=== PATIENT | female | born 1975 | race Caucasian/White ===

== ENCOUNTER 2020-03-14 08:01 | Outpatient (CLI) | payer OTHER, SELFPAY ==
--- NOTE | ~2020-03-14 | US_ITS ---
EXAMINATION: US soft tissue UE LT DATE: 03/14/2020 08:40 INDICATION: Left forearm swelling TECHNIQUE: Multiple grayscale and Doppler ultrasound images of the region of concern at the posterior left forearm were obtained. COMPARISON: None FINDINGS/IMPRESSION: Normal appearance to the subcutaneous fat and underlying musculature at the region of concern. No abn ormal masses or fluid collections identified. Reviewed, dictated and finalized at location B.
--- NOTE | ~2020-03-14 | US_ITS ---
EXAMINATION: US right upper quadrant DATE: 03/14/2020 08:39 INDICATION: Abnormal liver function tests. TECHNIQUE: Multiple grayscale and Doppler ultrasound images of the abdomen were obtained. COMPARISON: Ultrasound 03/09/2014 FINDINGS: The visualized portions of the head, body, and tail of the pancreas are normal. There is di ffuse hepatic steatosis. There is a 2.7 cm hypoechoic mass at the margin of left hepatic lobe. There is normal flow in main portal vein. The gallbladder is absent. The common duct is normal and measures 6 mm. IMPRESSION: 1. Diffuse hepatic steatosis. 2. 2.7 cm hypoechoic mass at the margin of left hepatic lobe which may be benign or less likely malig nant. Abdomen MRI without and with contrast is recommended. Reviewed, dictated and finalized at location A. IMPRESSION: 1. Diffuse hepatic steatosis. 2. 2.7 cm hypoechoic mass at the margin of left hepatic lobe which may be benig n or less likely malignant. Abdomen MRI without and with contrast is recommende dInes
== END 2020-03-14 08:02 | disposition home or self-care (01) ==
LOC: CHSIMG 08:05
PROVIDERS: PCP Internal Medicine; Visit Provider Internal Medicine
DX: R94.5 Abnormal results of liver function studies (principal); M79.89 Other specified soft tissue disorders; M67.40 Ganglion, unspecified site
CPT/HCPCS: 76705; 76882

== ENCOUNTER 2020-03-15 10:36 | Outpatient (CLI) | payer OTHER, SELFPAY ==
--- NOTE | ~2020-03-15 | MR_ITS ---
EXAMINATION: MR abdomen wo/w con DATE: 03/15/2020 11:55 INDICATION: Liver mass TECHNIQUE: Magnetic resonance imaging (MRI) of the abdomen was performed without and with 20 mL Multi xochitl intravenous contrast. Sequences included coronal T2-weighted SS-FSE, coronal and axial FS 2D-F IESTA, axial STIR FSE, axial T2-weighted SS-FSE, axial T2-weighted FS SS-FSE, axial diffusion-weighte d SE, axial dual-echo T1-weighted FSPGR, and axial and coronal T1-weighted LAVA. Postcontrast axial T 1-weighted LAVA images were obtained in a time course. Postcontrast coronal T1-weighted LAVA images w ere obtained. COMPARISON: 03/14/2020 FINDINGS: Heart size is normal. No pericardial or pleural effusion. Diffuse hepatic steatosis with signal dropo ut on opposed phase images. 6 mm T2 hyperintense nonenhancing cyst in the right hepatic lobe. No intr ahepatic correlate identified for the hypoechoic lesion identified at the margin of the left hepatic lobe which appears more likely to represent fat situated between segments 3 and 4B. Gallbladder is geiger rgically absent with susceptibility artifact such with surgical clips at the gallbladder fossa. Splee n, pancreas, bilateral adrenal glands and kidneys are normal. Visualized portions of the bowels are u nremarkable. No pathologically enlarged abdominal lymphadenopathy. Bone marrow signal throughout the visualized bones is normal. IMPRESSION: 1. Diffuse hepatic steatosis with 6 mm cyst. No intrahepatic correlate identified for the hypoechoic region seen on the prior ultrasound which appears to represent fat situated between segments 3 and 4B of the liver. 2. Status post cholecystectomy. Reviewed, dictated and finalized at location B. IMPRESSION: 1. Diffuse hepatic steatosis with 6 mm cyst. No intrahepatic correlate identifi ed for the hypoechoic region seen on the prior ultrasound which appears to repr esent fat situated between segments 3 and 4B of the liver. 2. Status post cholecystectomy.
== END 2020-03-15 10:37 | disposition home or self-care (01) ==
LOC: CHSIMG 10:37
PROVIDERS: PCP Internal Medicine; Visit Provider Internal Medicine
DX: R16.0 Hepatomegaly, not elsewhere classified (principal)
CPT/HCPCS: 74183

== ENCOUNTER 2021-05-31 12:27 | Outpatient (CLI) | payer OTHER, SELFPAY ==
[2021-05-31 13:43] LABS: Influenza A QL RT-PCR Negative (Negative); Influenza B QL RT-PCR Negative (Negative); SARS-CoV-2 RNA PCR Negative (Negative)
== END 2021-05-31 12:28 | disposition home or self-care (01) ==
LOC: CHSLAB 12:30
PROVIDERS: PCP Internal Medicine; Visit Provider Internal Medicine
DX: J06.9 Acute upper respiratory infection, unspecified (principal); J02.9 Acute pharyngitis, unspecified; R50.9 Fever, unspecified; Z20.822 Contact with and (suspected) exposure to COVID-19
CPT/HCPCS: 87081; 87502; 87880; C9803; U0003; U0005

== ENCOUNTER 2023-03-28 09:39 | Outpatient (CLI) | payer BC, SELFPAY ==
--- NOTE | ~2023-03-28 | CT_ITS ---
EXAMINATION:CT diagnostic chest wo con DATE: 03/28/2023 10:04 INDICATION: Cough. Abnormal chest radiograph. TECHNIQUE: Computed tomography (CT) of the chest was performed without intravenous contrast. Automate d exposure control and iterative reconstruction technique were employed. The dose-length product (DLP ) was 508.33 mGy-cm. COMPARISON: Chest 2 views 12/25/2016 FINDINGS: There is mild atelectasis bilaterally. No bronchiectasis or honeycombing. No pleural effusi on. The heart size is normal. No pericardial effusion. There are changes of cholecystectomy. There is a dropped gallstone posterior to the liver. There is mild thoracic spondylosis. IMPRESSION: 1. Mild atelectasis in the lungs. Reviewed, dictated and finalized at location E.
== END 2023-03-28 09:40 | disposition home or self-care (01) ==
LOC: CHSIMG 09:42
PROVIDERS: PCP Internal Medicine; Visit Provider Internal Medicine
DX: R05.9 Cough, unspecified (principal); R91.8 Other nonspecific abnormal finding of lung field; J98.11 Atelectasis
CPT/HCPCS: 71250

== ENCOUNTER 2023-04-08 10:45 | Outpatient (CLI) | payer BC, SELFPAY | END 2023-04-08 10:46 | disposition home or self-care (01) | LOC: CHSCARD 10:48 | PROVIDERS: PCP Internal Medicine; Visit Provider Internal Medicine | DX: R05.9 Cough, unspecified (principal); R94.2 Abnormal results of pulmonary function studies | CPT/HCPCS: 94060; 94726; 94729; 95012 ==

== ENCOUNTER 2023-09-02 10:19 | Outpatient (CLI) | payer BC, SELFPAY ==
--- NOTE | ~2023-09-02 | MM_ITS ---
EXAMINATION: MM screening [facility] BI w sarika HISTORY: Screening TECHNIQUE: Craniocaudal and mediolateral oblique 3-D tomosynthesis images were obtained and synthetic 2-D images were generated. CAD analysis was submitted and interpreted. COMPARISON: No prior mammogram is available for comparison at this institution. BREAST PARENCHYMAL COMPOSITION: Not dense: There are scattered areas of fibroglandular density. FINDINGS: There is no evidence of suspicious mass, calcification, or architectural distortion to sugg est malignancy in either breast. There has been no suspicious interval change. IMPRESSION: 1. No mammographic evidence of malignancy. 2. Recommend routine screening mammography in one year. BI-RADS Category 1: Negative Reviewed, dictated and finalized at location A.
== END 2023-09-02 10:20 ==
LOC: MICIMG 10:20
PROVIDERS: PCP Obstetrics & Gynecology; Visit Provider Obstetrics & Gynecology
DX: Z12.31 Encounter for screening mammogram for malignant neoplasm of breast (principal)
CPT/HCPCS: 77063; 77067

== ENCOUNTER 2024-12-14 10:03 | Outpatient (CLI) | payer BC, SELFPAY ==
--- NOTE | ~2024-12-14 | DEXA_ITS ---
Bone Density Report Name: MERCEDES JURADO Age: 49 Sex: Female Ethnicity: Jordin Date of : 1975 Indication: postmenopausal; screening for osteoporosis; height loss; prior fracture; asthma or emphysema; Referring Provider: Iza Vazquez Study: Bone densitometry was performed. Exam Date: December 14, 2024 Accession number: [id number] Bone Density: Region BMD T-score Z-score Classification AP Spine(L1-L4) 0.938 -1.0 -0.2 Normal Femoral Neck (Left) 0.959 1.0 1.7 Normal Total Hip (Left) 1.145 1.7 2.1 Normal Femoral Neck (Right) 0.922 0.7 1.4 Normal Total Hip (Right) 1.034 0.8 1.2 Normal Total Hip Mean 1.090 1.3 1.7 Normal World Health Organization criteria for BMD impression classify patients as: Normal (T-score at or above -1.0), Osteopenia (T-score between -1.0 and -2.5), or Osteoporosis (T-score at or below -2.5). 10-year Fracture Risk: FRAX not reported because: All T-scores for Spine Total, Hip Total, Femoral Neck at or above -1.0 Prior hip or vertebral fracture Clinical Information Provided by Patient: Have had a previous hip or vertebral fracture Has had a low trauma fracture Has used the following medications: Vitamin D Has the following medical conditions: Asthma or Emphysema Patient maximum height was 67 Drinks caffeinated beverages Onset of menses at age 13 Number of children 2 Impression: The patient has normal bone mass. The patient has risk factors, including: previous fracture. Discussion: INCREASED RISK OF FRACTURE DUE TO HISTORY OF FRACTURE. The patient's previous fracture puts the patient at high risk of a future fracture. In untreated patients, the risk of osteoporotic fracture increases approximately two-fold for each 1.0 SD decrease in T-score. Low bone density is not the only risk factor for fracture; also consider factors such as patient's age, frailty or poor health, risk of falling, risk of injury, previous osteoporotic fracture, family history of osteoporosis, cigarette smoking, low body weight, etc. Not everyone with a low trauma fracture has osteoporosis; osteomalacia and other metabolic bone disorders should also be considered. Patients who have osteoporosis should be evaluated for specific diseases and conditions (secondary causes) that may cause or contribute to bone loss and fracture risk. National Osteoporosis Foundation (NOF) recommends pharmacologic intervention for patients with a prior hip or vertebral fracture regardless of BMD T-score. The patient should follow a healthful lifestyle (good nutrition with adequate calcium and vitamin D, and appropriate weight-bearing exercise). Follow-Up: Consider a repeat BMD and Vertebral Fracture Assessment (VFA) exam in 2 years or sooner if medically necessary, to reassess this patient's status. Reported by: MARSHALL on 12/14/2024 10:25:00 AM. Reviewed, dictated and finalized at location A.
== END 2024-12-14 10:04 | disposition home or self-care (01) ==
LOC: MICIMG 10:04
PROVIDERS: PCP Obstetrics & Gynecology; Visit Provider Internal Medicine
DX: Z13.820 Encounter for screening for osteoporosis (principal); Z78.0 Asymptomatic menopausal state
CPT/HCPCS: 77080

== ENCOUNTER 2025-03-22 14:33 | Outpatient (CLI) | payer BC, SELFPAY ==
--- NOTE | ~2025-03-22 | MM_ITS ---
EXAMINATION: screening [facility] BI w sarika INDICATION: Asymptomatic, referred for screening mammogram COMPARISON: 09/02/2023 TECHNIQUE: Digital Breast Tomosynthesis CC, MLO views of Both breasts were obtained with computer-aided detection to assist in interpretation of the study. FINDINGS: There are scattered areas of fibroglandular density. There is an asymmetry seen on the cc view in the retroareolar left breast at middle third. Elsewhere, there are no mammographic features of malignancy. IMPRESSION: 1. Left breast Asymmetry. 2. No evidence of malignancy in the Right breast. RECOMMENDATION: Left breast Diagnostic mammogram with true lateral, appropriate spot compression views and an ultrasound if needed. BI-RADS Category 0: Incomplete: Needs additional imaging evaluation. Reviewed, dictated and finalized at location B. IMPRESSION: 1. Left breast Asymmetry. 2. No evidence of malignancy in the Right breast. RECOMMENDATION: Left breast Diagnostic mammogram with true lateral, appropriate spot compressio n views and an ultrasound if needed. BI-RADS Category 0: Incomplete: Needs additional imaging evaluation.
== END 2025-03-22 14:34 | disposition home or self-care (01) ==
PROVIDERS: PCP Obstetrics & Gynecology; Visit Provider Obstetrics & Gynecology
DX: Z12.31 Encounter for screening mammogram for malignant neoplasm of breast (principal); R92.8 Other abnormal and inconclusive findings on diagnostic imaging of breast
CPT/HCPCS: 77063; 77067

== ENCOUNTER 2025-04-15 09:25 | Outpatient (CLI) | payer BC, SELFPAY ==
--- NOTE | ~2025-04-15 | MMUS_ITS ---
EXAMINATION: MM diagnostic linsey LT w sarika, US breast LT complete HISTORY: Follow-up left breast asymmetry TECHNIQUE: Additional 3-D tomosynthesis images of the left breast were performed and synthetic 2-D images were generated. CAD analysis was submitted and interpreted. High resolution complete left breast ultrasound was performed. COMPARISON: Comparison to multiple prior studies sequentially, with oldest reviewed study dated 09/02/2023. BREAST PARENCHYMAL COMPOSITION: Not dense: There are scattered areas of fibroglandular density. FINDINGS: MAMMOGRAPHIC FINDINGS: No discrete mass, calcifications or suspicious architectural distortion are identified in the left breast with spot compression or mediolateral views. ULTRASOUND: Complete US of all 4 quadrants of the left breast/s and retroareolar region was reviewed. Normal heterogeneous echotexture without focal solid or cystic mass. IMPRESSION: 1. No evidence for malignancy in the left breast. 2. Routine yearly screening mammogram and regular clinical breast examination are recommended. BI-RADS Category 1: Negative Reviewed, dictated and finalized at location B. STRIPER IMPRESSION: 1. No evidence for malignancy in the left breast. 2. Routine yearly screening mammogram and regular clinical breast examination a re recommended. BI-RADS Category 1: Negative
--- OUTSIDE RECORDS SUMMARY | 2025-04-15 10:20 | XMS_ITS | Encounter Summary ---
Author Organization [employer] Address [address] [place] [address] Care Team Providers Care Paperboard Box Maker Name Role Phone Unavailable Primary Care Provider Unavailabl e Encounter Details Date Type Department Care Team (Latest Contact Info) Description 02/02/2003 Outpatient Historical HIS PATIENT IN A BED Brandon Leyva MD NO ADDRESS ON FILE [facility] ([facility]) (Primary Dx) Social History Tobacco Use Types Packs/Day Years Used Date Smoking Tobacco: Never Assessed Comments Unknown Sex and Gender Information Value Date Recorded Sex Assigned at Not on file 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
--- OUTSIDE RECORDS SUMMARY | 2025-04-15 10:20 | XMS_ITS | Patient Health Record ---
Author Organization [facility] Address [address] [place] [address] Care Team Providers Care Registered Phlebotomist Part Time Name Role Phone Iza Vazquez MD Primary Care Provider Terrell JacintoRebeca Unavailable [phone] Reason For Referral No Information Medications Medication SIG (Take, Route, Frequency, Duration) Notes Start Date End Date Status Aspirin Adult Low Strength 81 MG take 1 tablet (81 mg) by oral route once daily Oral 1 Active Ursodiol 500 mg bid Oral Acti ve Claritin 10 mg take 1 tablet (10 mg ) by oral route once daily Oral 1 Active Multi-Vitamin take 1 tablet by ora l route once Oral 1 Active Effexor XR 75 MG take 1 capsule (75 m g) by oral route once daily Oral 1 Active busPIRone HCl 10 MG take 1 tablet (10 mg ) by oral route 2 times per day Oral 2 Active Plan Of Treatment No Information Insurance Providers Payer Name Payer Address Payer Phone Subscriber Number Group Number Insured Name Patient Relationship to Insured Coverage Start Date Coverage End Date Friend [address] [place] [address] [id number] Campos Brenner Self - patient is the insured [facility] [employer] [address] [address] [place], [place] [id number] [id number] Campos Brenner Self - patient is the insured Medical (General) History Surgical History Surgery Date(Month/Year) Femur Fracture; 2020-04-08 Hernia Repair; 2020-04-08 cholecystectomy; 2020-04-12
--- OUTSIDE RECORDS SUMMARY | 2025-04-15 10:20 | XMS_ITS | Clinical Summary ---
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
--- OUTSIDE RECORDS SUMMARY | 2025-04-15 10:20 | XMS_ITS | Encounter Summary ---
Author Organization [facility] Address [address] [place] [address] Phone Care Team Providers Care Oil Refinery Operator Name Role Phone Iza Vazquez MD Primary Care Provider [phone] Encounter Details Date Type Department Care Team (Late st Contact Info) Description 08/14/2022 Orders Only [facility] Scanning, Provider Social History Tobacco Use Types Packs/Day Years Used Date Smoking Tobacco: Never Smokeless Tobacco: Never Alcohol Use Standard Drinks/Week Comments Yes 0 (1 standard drink = 0.6 oz pur e alcohol) AUDIT-C Answer Date Recorded Q1: How often do you have a drink containing alc ohol? 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 Gender Identity Female 09/21/2020 8:23 AM CDT Sexual Orientation Not on file documented as of this encounter Plan of Treatment Not on file documented as of this encounter Procedures Procedure Name Priority Date/Time Associated Diagnosis Comments SCAN - LABS 08/14/2022 documented in this encounter Results * SCAN - LABS (08/14/2022) us Provider Scanning Final Result documented in this encounter Visit Diagnoses Not on filedocumented in this encounter Additional Health Concerns Infection Onset Date Last Indicated Resolved Time COVID: Recovered Comment:Covid positive with home test 01/17/23, Symptoms started 01/14/23 01/23/2023 01/23/2023 04/23/2023 3:[address] COVID: Suspected 03/19/2023 03/19/2023 03/19/2023 10:04 PM CDT COVID: Suspected 08/01/2023 08/01/2023 08/01/2023 6:33 PM MASTER OCEAN YACHT COVID: Suspected 08/01/2023 08/01/2023 08/01/2023 11:51 PM MASTER OCEAN YACHT documented as of this encounter Care Teams Oil Refinery Operator Relationship Specialty Start Date End Date Iza Vazquez MD [address] [place] [address] PCP - General 08/12/16 documented as of this encounter
--- OUTSIDE RECORDS SUMMARY | 2025-04-15 10:20 | XMS_ITS | Clinical Summary ---
Author Organization [facility] Address [address] [place] [address] Care Team Providers Care Hog Ribber Name Role Phone Unavailable Primary Care Provider Unavailabl e Source Comments [facility],non-owned Affiliates and Associated Physician Practices is amultiple site organization consisting of ambulatory clinics and hospital sitesin [place], [place], [place] and [place]. This disclosure is being madepursuant to the Care Everywhere program and may not contain all information available regarding this patient. Last updated 18.[facility] Allergies No known active allergies Medications * Be aware that medications may not be up to date on this document. Alwaysverify current medications with the patient. busPIRone (BUSPAR) 10 MG tablet 2 times daily 04/04/2020 Active venlafaxine (EFFEXOR) 75 MG tablet Take 75 mg by mouth Active multivitamins (ONE A DAY) capsule Take 1 capsule by mouth once daily Active vitamin D, ergocalciferol, (DRISDOL) 1.25 MG (02570 UT) capsule 02/15/2021 Active ASPIRIN 81 PO Active Loratadine (CLARITIN PO) Active Social History Tobacco Use Types Packs/Day Years Used Date Smoking Tobacco: Never Assessed Comments No Sex and Gender Information Value Date Recorded Sex Assigned at Not on file Legal Sex Female 3:27 PM TRANSITION NURSE Gender Identity Not on file Sexual Orientation Not on file Last Filed Vital Signs Vital Sign Reading Time Taken Comments Blood Pressure 132/84 05/04/2021 11:48 AM TRANSITION NURSE Pulse 99 05/04/2021 11:48 AM TRANSITION NURSE Temperature 36.8 C (98.2 F) 05/04/2021 11:48 AM TRANSITION NURSE Respiratory Rate 18 05/04/2021 11:48 AM TRANSITION NURSE Oxygen Saturation 99% 05/04/2021 11:48 AM TRANSITION NURSE Inhaled Oxygen Concentration - - Weight 118.5 kg (261 lb 4 oz) 05/04/2021 11:48 A M TRANSITION NURSE Height - - Body Mass Index - - Plan of Treatment Health Maintenance Due Date Last Done Comments COLOGUARD (AGES 45-75) - COL ON CA SCREENING 1974 COLON MONITORING 1974 COLONOSCOPY - COLON CA SCREENING 1974 CT COLONOGRAPHY - COLON CA SCREENING 1974 Colorectal Cancer Screening 1974 FIT - COLON CA SCREENING 1974 FLEX SIG - COLON CA SCREENING 1974 LIPID TESTING 1974 MAMMOGRAM 1974 HIV SCREENING 1989 HEPATITIS C SCREENING 08/29/1992 DTAP/TDAP/TD VACCINES (1 - Tdap) 1993 HEPATITIS B VACCINE (1 of 3 - 19+ 3-dose series) 1993 DEPRESSION SCREENING 06/02/2024 PNEUMOCOCCAL VACCINE 50+ (1 of 1 - PCV) 2024 ZOSTER VACCINE (1 of 2) 2024 COVID-19 VACCINE (3 - 2024-2 6 season) 2025 09/01/2020, 08/13/2020 INFLUENZA VACCINE (#1) 2025 03/09/2020 HIB VACCINE Aged Out No longer eligi ble based on patient's age to complete this topic HPV VACCINE Aged Out No longer eligi ble based on patient's age to complete this topic MENINGOCOCCAL (Group B) VACCINE SHARED DECISION-MAKING Aged Out No longer eligible based on patient's age to complete this topic MENINGOCOCCAL GROUPS A/C/Y/W VACCINE Aged Out No longer eligible b ased on patient's age to complete this topic [place] [address] [place] [address]
--- OUTSIDE RECORDS SUMMARY | 2025-04-15 10:21 | XMS_ITS | Encounter Summary ---
Author Organization [facility] Address [address] [place] [address] Care Team Providers Care Hot Header Operator Name Role Phone Unavailable Primary Care Provider Unavailabl e Encounter Details Date Type Department Care Team (Late st Contact Info) Description 04/11/2020 Lab Requisition [facility] [address] [place] [address] Romy Hayward MD [address] [place] [address] Social History Tobacco Use Types Packs/Day Years Used Date Smoking Tobacco: Never Assessed Comments Unknown Sex and Gender Information Value Date Recorded Sex Assigned at Not on file Legal Sex Female 3:27 PM VENDING MACHINE REPAIRER Gender Identity Not on file Sexual Orientation Not on file documented as of this encounter Plan of Treatment Not on file documented as of this encounter Procedures Procedure Name Priority Date/Time Associated Diagnosis Comments DERMATOPATHOLOGY Routine 04/10/2020 12:0 0 AM VENDING MACHINE REPAIRER documented in this encounter Results * DERMATOPATHOLOGY (04/10/2020 12:00 AM VENDING MACHINE REPAIRER) Case Report Dermatopathology Report Case: [id number] Authorizing Provider: Romy Hayward MD Collected: 04/10/2020 12:00 AM Ordering Location: [facility] Received: 04/11/2020 10:40 AM Pathologist: Veronica Proctor MD Specimens: A) - Skin, right cheek B) - Skin, right nasal labia 0 12:40 PM VENDING MACHINE REPAIRER DERMATOPATHOLOGY LABORATORY Final Diagnosis Specimen A. SKIN, right cheek: DILATED PORE OF DANAE (L70.8) (see microscopic description) Specimen B. SKIN, right nasal labia: DILATED PORE OF DANAE (L70.8) (see microscopic description) 0 12:40 PM VENDING MACHINE REPAIRER DERMATOPATHOLOGY LABORATORY at 1240 VENDING MACHINE REPAIRER Clinical History A-B: R/O dilated pore. 0 12:40 PM [facility] Gross Description Specimen A: Received is one formalin filled container labeled with the patient's name and designated right cheek. The specimen consists of a punch measuring [id number]. Jar 0. Specimen B: Received is one formalin filled container labeled with the patient's name and designated right nasal labia. The specimen consists of a punch measuring [id number]. Jar 0. 0 12:40 PM [facility] Microscopic Description Specimen A. SKIN, right cheek: There is a central, broad epidermal invagination lined by epithelium with a prominent rete pattern. Additional deeper sections were obtained and reviewed. Specimen B. SKIN, right nasal labia: There is a central, broad epidermal invagination lined by epithelium with a prominent rete pattern. Additional deeper sections were obtained and reviewed. 0 12:40 PM [facility] Disclaimer An external and internal positive and negative controls are appropriate for the histochemical, immunohistochemical and immunofluorescence stain(s) in this case (if any), except where stated explicitly. The performance characteristics of the stain(s) cited in this report were developed and its performance characteristic determined by the Dermatopathology Laboratory at [facility], directed by Dr. Mika Shelby. These tests need not be, and therefore are not, approved by the [place] Food and Drug Administration. The tests are used for clinical purposes. Billing Codes Specimen Charges Stain Charges 18776 94815 1 1 0 12:40 PM [facility] Embedded Images 0 12:40 PM [facility] Pathology/Cytology TISSUE SPECIMEN FROM SKIN / Unknown 04/10/2020 04/11/2020 10:40 AM VENDING MACHINE REPAIRER Miscellaneous samples (specimen) TISSUE SPECIMEN FROM SKIN / Unknown 04/10/2020 04/11/2020 10:40 AM VENDING MACHINE REPAIRER us Romy Hayward MD LAB - PATHOLOGY/CYTOLOGY ORDERA BLES Final Result DERMATOPATHOLOGY LABORATORY [facility] - Department of Dermatology [facility] [address] [place] [address], [address] [phone] documented in this encounter Visit Diagnoses Not on filedocumented in this encounter
--- OUTSIDE RECORDS SUMMARY | 2025-04-15 10:21 | XMS_ITS | Clinical Summary ---
Author Organization [facility] Address [address] [place] [address] Care Team Providers Care Entry Tech Name Role Phone Iza Vazquez MD Primary Care Provider [phone] Allergies Active Allergy Reactions Criticality Noted Date Comments Oxycodone Hives Medium 04/08/2020 Oxycodone-Acetaminoph en Other (See comments) Reaction: Itching, Medications busPIRone (BUSPAR) 10 mg tablet 2 (two) times a day 0 Active ergocalciferol (VITAMIN D) 50,000 unit capsule once a week 0 Active multivitamin capsule Take 1 capsule by mouth daily Active venlafaxine XR (EFFEXOR-XR) 75 mg 24 hr capsule daily 3 Active loratadine (Claritin) 10 mg tablet take 1 tablet (10 mg) by oral route once daily Oral 1 Active Dulera 200-5 mcg/actuation inhaler 3 Active ursodioL (KAROLYN FORTE) 500 mg tabletIndication s:Primary biliary cholangitis (HCC) TAKE 3 TABLETS DAILY 270 tablet 3 5 Active topiramate (TOPAMAX) 25 mg tabletIndication s:Metabolic syndrome Take 1 tablet (25 mg total) by mouth daily 90 tablet 1 5 Active tirzepatide, weight loss, (Zepbound) 15 mg/0.5 mL pen injectorIndicati ons:Obesity, class 3,BMI 40.0-44.9, adult (HCC) Inject 0.5 mL (15 mg total) under the skin every 7 days 6 mL 1 5 09/03/19 26 Active tirzepatide, weight loss, (Zepbound) 15 mg/0.5 mL pen injectorIndicati ons:Obesity, class 3,BMI 40.0-44.9, adult (HCC) Inject 0.5 mL (15 mg total) under the skin every 7 days 6 mL 1 5 03/18/20 25 Discontinu ed(Reorder ) topiramate (TOPAMAX) 25 mg tabletIndication s:Metabolic syndrome Take 1 tablet (25 mg total) by mouth daily 90 tablet 1 5 03/18/20 25 Discontinu ed(Reorder ) Active Problems Problem Noted Date Diagnosed Date Encounter for weight loss counseling 03/18/2025 Assessment & Plan (03/18/2025 8:44 AM CDT): Reviewed importance of adequate protein intake. Reviewed recommendation/goal of >/= 150 minutes/week moderate intensity aerobic exercise. Discussed okay to not track food/calories but that if they start to struggle or are not losing weight, this is a useful tool to help refocus. Discussed limiting calorie intake with restaurant options including planning meals prior to ordering, eating only half the meal, and substituting certain items. Obesity, class 3 12/27/2024 Assessment & Plan (03/18/2025 2:39 PM CDT): Discussed insulin resistance including effect on weight and risk for progression to diabetes. Recommended low-carb, low-glycemic diet; choose whole grains and avoid more highly processed carbohydrates. Discussed potential benefits of this w/r/t gut microbiome. Referred to ADA and [employer] websites for additional information on topics including glycemic index/carbohydrate choices, protein sources. Continue low carb, low glycemic diet. Campos is currently on zepbound 15mg weekly Continue medication at current dose. May consider increasing topamax in the future if no continued improvement. Reviewed importance of adequate protein intake. Reviewed recommendation/goal of >/= 150 minutes/week moderate intensity aerobic exercise. Assessment & Plan (12/27/2024 10:57 AM CDT): Continue low carb, low glycemic diet. Campos is currently on Zepbound and topamax Continue medication at current dose. Zepbound Before your trip: DO NOT take on Feb 06--> instead Take Zepbound 15mg on Feb 11 Take Zepbound 15mg on Feb 23 Take Zepbound 15mg when you return on Mar 06 and then you will be back to your weekly Friday injections the next week and on May consider increasing topamax in the future if no continued improvement. increase physical activity, water, and protein (eat protein first, veggies, fruits, starchy veggies, legumes, grains) Increase to 60-80+ fl oz daily Increase protein intake to 70-90g daily Try to increase intentional physical activity and add in some strength training (weights, resistance bands, yoga, pilates) Reviewed importance of adequate protein intake. Reviewed recommendation/goal of >/= 150 minutes/week moderate intensity aerobic exercise. BMI 40.0-44.9, adult 12/27/2024 Assessment & Plan (03/18/2025 2:26 PM CDT): Patient's initial BMI was 42.6; this has improved to 28.11 through medical management Assessment & Plan (12/27/2024 10:58 AM CDT): Patient's initial BMI was 42.6; this has improved to 29.52 through medical management Encounter for exercise counseling 12/27/2024 Assessment & Plan (03/18/2025 8:44 AM CDT): I counseled the patient on exercise: Recommend 36 min. cardio daily. Based on availiable data on the secondary prevention of coronary heart disease, stroke and prediabetes, physical activity is potentially as active as many drug interventions.Rui Segundo: BMJ 2013 [id number];03/2013; Diabetes Care, Volume 35, May 2012. Reviewed recommendation/goal of >/= 150 minutes/week moderate intensity aerobic exercise. Discussed need for weightbearing exercise in order to promote muscle gain and burning fat. Assessment & Plan (12/27/2024 10:59 AM CDT): I counseled the patient on exercise: Recommend 36 min. cardio daily. Based on availiable data on the secondary prevention of coronary heart disease, stroke and prediabetes, physical activity is potentially as active as many drug interventions.RatnaChristianhilario: BMJ 2013 [id number];03/2013; Diabetes Care, Volume 35, May 2012. Reviewed recommendation/goal of >/= 150 minutes/week moderate intensity aerobic exercise. Discussed need for weightbearing exercise in order to promote muscle gain and burning fat. KATHI (obstructive sleep apnea) 04/28/2024 Assessment & Plan (03/18/2025 8:44 AM CDT): Discussed role of weight loss in improving KATHI sx. Discussed the importance of good quality, adequate sleep to manage weight. Discussed good sleep hygiene keeping regular bed time, avoiding watching TV or using electronics ( smart phone ) in bed. Emphasized the importance of wearing the sleep mask ( CPAP or BiPAP ) or using Inspire ( Implantable device ) to treat sleep apnea. Assessment & Plan (12/27/2024 11:00 AM CDT): Discussed role of weight loss in improving KATHI sx. Discussed the importance of good quality, adequate sleep to manage weight. Discussed good sleep hygiene keeping regular bed time, avoiding watching TV or using electronics ( smart phone ) in bed. Emphasized the importance of wearing the sleep mask ( CPAP or BiPAP ) or using Inspire ( Implantable device ) to treat sleep apnea. Metabolic syndrome 02/06/2024 Assessment & Plan (03/18/2025 8:43 AM CDT): Obesity is one of the leading risk factor for mortality. Metabolically healthy obese individuals had 49% increased risk of coronary artery disease, 7% increased risk of cerebrovascular disease and 96% increased risk of heart failure. In other words, even individuals who are normal weight can have metabolic abnormalities and similar risk for cardiac vascular disease events. Thus, the complications that may result from metabolic syndrome and frequently serious and chronic. They include atherosclerosis, diabetes, myocardial infarction, renal disease, cardiovascular events such as stroke, nonalcoholic fatty liver disease, peripheral artery disease, and cardiovascular diseases. His diabetes develops; there is an increased risk of retinopathy, neuropathy, renal disease and amputation of limbs. Therefore, treating obesity, obesity related diseases is exceedingly crucial. Improving the hypertrophic adipocytes function and decrease insulin resistance is the main goal of the treatment. Furthermore, an emerging concept that the anti-obesity agents must not only reduce the hypertrophic adipocytes but must also correct the fat dysfunction, adiposopathy. Weight loss is associated with increases in mean suppression of glucose production from baseline, is associated with increase insulin stimulated in glucose disposal from fat-free mass and weight loss increased beta cell function. In other words, weight loss change in hepatic insulin sensitivity and muscle insulin sensitivity, beta cell function and a 24-hour plasma glucose and insulin profiles. Our goal is and decreasing the weight between 16 and 20% which will significantly decrease the risk of morbidity and mortality. Assessment & Plan (12/27/2024 10:38 AM CDT): Obesity is one of the leading risk factor for mortality. Metabolically healthy obese individuals had 49% increased risk of coronary artery disease, 7% increased risk of cerebrovascular disease and 96% increased risk of heart failure. In other words, even individuals who are normal weight can have metabolic abnormalities and similar risk for cardiac vascular disease events. Thus, the complications that may result from metabolic syndrome and frequently serious and chronic. They include atherosclerosis, diabetes, myocardial infarction, renal disease, cardiovascular events such as stroke, nonalcoholic fatty liver disease, peripheral artery disease, and cardiovascular diseases. His diabetes develops; there is an increased risk of retinopathy, neuropathy, renal disease and amputation of limbs. Therefore, treating obesity, obesity related diseases is exceedingly crucial. Improving the hypertrophic adipocytes function and decrease insulin resistance is the main goal of the treatment. Furthermore, an emerging concept that the anti-obesity agents must not only reduce the hypertrophic adipocytes but must also correct the fat dysfunction, adiposopathy. Weight loss is associated with increases in mean suppression of glucose production from baseline, is associated with increase insulin stimulated in glucose disposal from fat-free mass and weight loss increased beta cell function. In other words, weight loss change in hepatic insulin sensitivity and muscle insulin sensitivity, beta cell function and a 24-hour plasma glucose and insulin profiles. Our goal is and decreasing the weight between 16 and 20% which will significantly decrease the risk of morbidity and mortality. Sleep disturbances 01/14/2024 Assessment & Plan (01/14/2024 8:22 PM CDT): The patient presents with symptoms highly indicative of sleep apnea including excessive daytime sleepiness and fatigue, loud snoring, frequent nocturnal awakenings and observed apneic period while sleeping. These symptoms have significantly impacted the patient's daily functioning and quality of life. A thorough clinical evaluation and initial screening tools strongly suggest the presence of Obstructive sleep apnea ( KATHI ) or another sleep related disorder. To accurately diagnose and formulate an effective treatment plan, it is imperative to conduct a sleep study. This diagnostic procedure will provide essential data on the patient's sleep architecture, respiratory events, and oxygen saturation levels, enabling targeted and evidence based intervention. Class 3 severe obesity due t o excess calories with body mass index (BMI) of 40.0 to 44.9 in adult 01/14/2024 Assessment & Plan (01/14/2024 8:27 PM CDT): Images from the original note were not included. Obesity is one of the leading risk factor for mortality. Metabolically healthy obese individuals had 49% increased risk of coronary artery disease, 7% increased risk of cerebrovascular disease and 96% increased risk of heart failure. In other words, even individuals who are normal weight can have metabolic abnormalities and similar risk for cardiac vascular disease events. Thus, the complications that may result from metabolic syndrome and frequently serious and chronic. They include atherosclerosis, diabetes, myocardial infarction, renal disease, cardiovascular events such as stroke, nonalcoholic fatty liver disease, peripheral artery disease, and cardiovascular diseases. His diabetes develops; there is an increased risk of retinopathy, neuropathy, renal disease and amputation of labs. Therefore, treating obesity, obesity related diseases is exceedingly crucial. Improving the hypertrophic adipocytes function and decrease insulin resistance is the main goal of the treatment. Furthermore, an emerging concept that the anti-obesity agents must not only reduce the hypertrophic adipocytes but must also correct the fat dysfunction, adiposopathy. Weight loss is associated with increases in mean suppression of glucose production from baseline, is associated with increase insulin stimulated in glucose disposal from fat-free mass and weight loss increased beta cell function. In other words, weight loss change in hepatic insulin sensitivity and muscle insulin sensitivity, beta cell function and a 24-hour plasma glucose and insulin profiles. Our goal is and decreasing the weight between 16 and 20% which will significantly decrease the risk of morbidity and mortality. Encounter for weight management 01/05/2024 Assessment & Plan (12/27/2024 10:59 AM CDT): Reviewed importance of adequate protein intake. Reviewed recommendation/goal of >/= 150 minutes/week moderate intensity aerobic exercise. Discussed okay to not track food/calories but that if they start to struggle or are not losing weight, this is a useful tool to help refocus. Discussed limiting calorie intake with restaurant options including planning meals prior to ordering, eating only half the meal, and substituting certain items. Assessment & Plan (01/13/2024 3:36 PM CDT): We discussed the patient's history regarding weight with BMI, associated co-morbidities currently present and at increased risk of developing in the future. The patient was examined today by obtaining thorough history and doing a physical exam Laboratory studies, EKG, US of Abdomen, and Home Sleep Apnea tests were ordered if appropriate. Patient understands the weight increase is most likely related to dysfunction of adipocytes and poor communication between feeding/satiety centers in the brain and the gut among other pathophysiologic reasons influenced by both intrinsic and extrinsic factors. Discussed the importance of proper nutrition and food intake including the need to avoid eating out and avoiding ultra processed foods. The lists of desirable and non-desirable foods were provided today. The importance of hydration was addressed. Sleep quantity and quality were discussed, ordered a sleep study if appropriate. Reviewed the sleep study results if available The importance of physical activity was discussed emphasizing it's role in maintaining the weight loss. Specific recommendation for the length of daily physical activity is given after explaining the recent research results suggesting at least 250 minutes per week of physical activity is needed to avoid decrease in Basal metabolic Rate which can promote regaining of weight. Weight lifting and resistance training was recommended to prevent muscle loss. We discussed anti-obesity medications at length. An appropriate medication was selected and prescribed pending the insurance authorization if necessary. Proper dosing instructions were provided in writing along with discussion of possible side effects. Patient was instructed to contact the office if any untoward side effects occur. We discussed the ultimate purpose of weight management which is to improve the function of adipocytes leading to improvement of metabolic health and reduction of risk of developing cardiovascular illnesses and weight related health problems. Lastly, we discussed the obesity being a chronic disease which will require above measures and taking anti-obesity medications intermediate accountant. Start taking Topamax 25 once daily Start Zepbound 2.5 mg weekly Assessment & Plan (01/05/2024 7:51 PM CDT): We discussed the patient's history regarding weight with BMI, associated co-morbidities currently present and at increased risk of developing in the future. The patient was examined today by obtaining thorough history and doing a physical exam Laboratory studies, EKG, US of Abdomen, and Home Sleep Apnea tests were ordered if appropriate. Patient understands the weight increase is most likely related to dysfunction of adipocytes and poor communication between feeding/satiety centers in the brain and the gut among other pathophysiologic reasons influenced by both intrinsic and extrinsic factors. Discussed the importance of proper nutrition and food intake including the need to avoid eating out and avoiding ultra processed foods. The lists of desirable and non-desirable foods were provided today. The importance of hydration was addressed. Sleep quantity and quality were discussed, ordered a sleep study if appropriate. Reviewed the sleep study results if available The importance of physical activity was discussed emphasizing it's role in maintaining the weight loss. Specific recommendation for the length of daily physical activity is given after explaining the recent research results suggesting at least 250 minutes per week of physical activity is needed to avoid decrease in Basal metabolic Rate which can promote regaining of weight. Weight lifting and resistance training was recommended to prevent muscle loss. We discussed anti-obesity medications at length. An appropriate medication was selected and prescribed pending the insurance authorization if necessary. Proper dosing instructions were provided in writing along with discussion of possible side effects. Patient was instructed to contact the office if any untoward side effects occur. We discussed the ultimate purpose of weight management which is to improve the function of adipocytes leading to improvement of metabolic health and reduction of risk of developing cardiovascular illnesses and weight related health problems. Lastly, we discussed the obesity being a chronic disease which will require above measures and taking anti-obesity medications intermediate accountant. Primary biliary cholangitis 01/05/2024 Assessment & Plan (01/09/2024 3:08 PM CDT): Sees GI, on Ursodiol Assessment & Plan (01/05/2024 7:51 PM CDT): Sees GI, on Ursodiol Depression with anxiety 01/05/2024 Assessment & Plan (01/09/2024 3:07 PM CDT): Discussed current treatment of depression and/or anxiety. Losing weight may be easier when controlling stress better by reducing symptoms of anxiety and depression. Recommended increasing physical activity and to consider meditating by using Apps such as Head Space and Imagine Clarity. Assessment & Plan (01/05/2024 7:50 PM CDT): Discussed current treatment of depression and/or anxiety. Losing weight may be easier when controlling stress better by reducing symptoms of anxiety and depression. Recommended increasing physical activity and to consider meditating by using Apps such as Head Space and Imagine Clarity. Vitamin D deficiency 01/05/2024 Assessment & Plan (01/09/2024 3:08 PM CDT): Reviewed Vit D level. Discussed potential complications of Vitamin D deficiency including increased risk for cardiovascular diseases, certain malignancies and osteoporosis. Monitor Vitamin D level, appropriate supplementation recommended. d Assessment & Plan (01/05/2024 7:51 PM CDT): Reviewed Vit D level. Discussed potential complications of Vitamin D deficiency including increased risk for cardiovascular diseases, certain malignancies and osteoporosis. Monitor Vitamin D level, appropriate supplementation recommended. Chest pain 01/06/2017 Assessment & Plan (01/06/2017 2:24 PM CDT): She has symptoms of recurrent prolonged chest discomfort without any exertional component that is highly atypical for being from obstructive coronary disease. Her EKG has very nonspecific findings only. She has no risk factors for premature coronary disease. Given lack of typical symptoms and risk factors I do not think any additional cardiac evaluation is needed at this time. Should she developed some exertional symptoms then consideration for treadmill stress testing would be appropriate. I discussed this at length with the patient she seemed comfortable with this approach. Resolved Problems Problem Noted Date Diagnosed Date Resolved Date Encounter for dietary consultation 12/27/2024 03/18/2025 Assessment & Plan (12/27/2024 10:59 AM CDT): The patient has been trying to follow a modified low glycemic diet and drink plenty of fluids daily. The patient is drinking 80+ fl oz of water daily and does not drink soda or juice. The patient is trying to stay away from processed foods for the most part. Cholelithiasis 03/21/2014 08/10/2024 Overview (09/05/2016): Cholelithiasis Assessment & Plan (01/05/2024 7:50 PM CDT): No current symptoms, on Ursodiol Encounters Date Type Department Care Team Description 03/18/2025 2:30 PM CDT Telemedicine [facility] Medicine Metabolic Weight Management [facility] [address] [place] [address] Sapna Medina PA Encounter for weight loss counseling (Primary Dx); Metabolic syndrome; Obesity, class 3; BMI 40.0-44.9, adult (HCC); Encounter for exercise counseling; KATHI (obstructive sleep apnea) from Last 3 Months Surgical History Surgery Date Site/Laterality Comments HERNIA REPAIR Hernia repair OTHER SURGICAL HISTORY Left broken femur: hardware placed OTHER SURGICAL HISTORY Left hardware to repair broken femur: hardware removed BIOPSY LIVER 08/04/2020 N/A Medical History Medical History Date Comments Hx Other Medical 2001 broken femur; C omments: JLE 03/21/2014 -; Laterality: left Hx Other Medical 2001 hardware to rep air broken femur; Comments: JLE 03/21/2014 -; Laterality: left Hypoglycemia Primary biliary cholangitis (HCC) Family History Medical History Relation Name Comments Breast cancer Father's Sister Stomach cancer Maternal Grandmother Lymphoma Mother Other Other 1 No family histo ry of Hypertension; Other Other 2 No family histo ry of Stroke; Other Other 3 No family histo ry of Myocardial infarction; Diabetes Other 4 Family history of Diabetes mellitus; Cholelithiasis Other 5 Family histor y of gallstones; Other Other 6 Family history of hernia; Breast cancer Paternal Grandmother Relation Name Status Comments Daughter Alive Father Alive Father's Sister Alive Maternal Grandfather (Age 89) Maternal Grandmother (Age 55) Mother Alive Other 1 Other 2 Other 3 Other 4 Other 5 Other 6 Paternal Grandfather (Age 68) Paternal Grandmother (Age 93) Sister Alive Social History Tobacco Use Types Packs/Day Years Used Date Smoking Tobacco: Never Passive Smoke Exposure: Never Smokeless Tobacco: Never Tobacco Cessation:Counseling Given: Not Answered Alcohol Use Standard Drinks/Week Comments Yes 0 (1 standard drink = 0.6 oz pur e alcohol) AUDIT-C Answer Date Recorded Frequency of Alcohol Consumption Not on file 07/06/2024 Q2: How many drinks containi ng alcohol do you have on a typical day when you are drinking? Patient does not drink Frequency of Binge Drinking Not on file 08/2024 Personal Safety Answer Date Recorded Have you ever been in or are you currently in a harmful physical or emotional relationship or is someone making you feel afraid or unsafe? 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 Gender Identity Female 09/21/2020 8:23 AM CDT Sexual Orientation Not on file Last Filed Vital Signs Vital Sign Reading Time Taken Comments Blood Pressure 119/77 10/19/2024 8:36 AM CDT Pulse 67 10/19/2024 8:36 AM CDT Temperature 36.5 C (97.7 F) 10/19/2024 8:36 AM CDT Respiratory Rate 14 08/01/2024 10:43 AM RETAIL ACCOUNT REPRESENTATIVE Oxygen Saturation 99% 10/19/2024 8:36 AM CDT Inhaled Oxygen Concentration - - Weight 81.4 kg (179 lb 8 oz) 03/18/2025 2:24 PM CDT Height 170.2 cm (5' 7) 03/18/2025 2:24 PM CDT Body Mass Index 28.11 03/18/2025 2:24 PM CDT Plan of Treatment Health Maintenance Due Date Last Done Comments Cervical Cancer Screening 1974 Colon Cancer Screening-Colonoscopy 1974 Depression Screening 1974 Hepatitis C Screening 1974 DTaP/Tdap/Td Vaccine (1 - Tdap) 1985 Hepatitis B Screening 1992 Regular Well Visit/Exam 18-64 1992 Pneumococcal vaccine <65 (1 of 2 - PCV) 1993 Breast Cancer Screening-Mammogram 06/07/2021 06/07/2020, 05/03/2019, 02/27/2018, Additional history exists Zoster Vaccine (1 of 2) 2024 Covid-19 Vaccine (2024-2 6 season) 2025 09/01/2020, 08/13/2020 Influenza Vaccine (#1) 2025 03/09/2020, 2013 Procedures Procedure Name Priority Date/Time Associated Diagnosis Comments SCREENING MAMMOGRAM BILATERAL W ADDISON Schedule Routine, Read Routine (OP Routine) 06/07/2020 8:18 AM RETAIL ACCOUNT REPRESENTATIVE Screening breast examination from Last 3 Months or Most Recently Relevant to Health Maintenance Results * Screening Mammogram Bilateral W Addison (06/07/2020 8:18 AM RETAIL ACCOUNT REPRESENTATIVE) Anatomical Region Laterality Modality Breast Bilateral Mammography Narrative 06/12/2020 7:50 AM RETAIL ACCOUNT REPRESENTATIVE Screening Mammogram Bilateral W Addison: 06/07/20 Clinical: Screening breast examination. Prior Study Comparisons: Comparison was made to the prior available relevant studies at the time of interpretation. Findings: Bilateral No significant masses, malignant type calcifications, skin thickening, nipple retraction, or significant lymphadenopathy is noted in either breast. The CAD review showed no significant findings. The breasts are heterogeneously dense, which may obscure small masses. The patient will be notified of results by letter. Impression: BI-RADS ATLAS category (overall): 1 Negative There is no mammographic evidence of malignancy. Routine Screening Mammogram in 1 Yr is recommended for bilateral Overall Assessment: 1 - Negative Adan Acuña MD IMG MAMMO PROCEDURES Final Result from Last 3 Months or Most Recently Relevant to Health Maintenance Insurance [employer] OOS [employer] ACCESS OOS [employer] ACCESS OOS Care Teams Entry Tech Relationship Specialty Start Date End Date Iza Vazquez MD [address] [place] [address] [facility] - General 08/12/16
== END 2025-04-15 09:26 | disposition home or self-care (01) ==
PROVIDERS: PCP Internal Medicine; Visit Provider Obstetrics & Gynecology
DX: R92.342 Mammographic extreme density, left breast (principal); N64.89 Other specified disorders of breast
CPT/HCPCS: 76641; 77061; 77065; G0279